=== PATIENT | female | born 1995 | race Two or more races ===

== ENCOUNTER 2024-08-31 22:36 | Inpatient (IN) | payer BC, OTHER ==
[~2024-08-31] VITALS: Ht 160 cm; Wt 53.6 kg
[2024-08-31 23:15] LABS: Urine Bacteria None Seen /hpf (None Seen)
[2024-08-31 23:32] VITALS: PULSE 78; RESP 28; O2SAT 100
[2024-08-31] MEDS: SODIUM CHLORIDE 0.9% 1,000 ML IV ONE (23:36)
[2024-08-31 23:47] LABS: Basophils # (auto) 0 10 ^3/uL (0-0.2); Basophils % (auto) 0.4 % (0.0-2.0); Eosinophils # (auto) 0.2 10 ^3/uL (0-0.8); Eosinophils % (auto) 1.8 % (0.0-7.0); Hematocrit 33.8 % (36.0-46.0); Hemoglobin 11.1 g/dL (12.2-16.2); Lymphocytes # (auto) 5.2 10 ^3/uL (0.4-5.4); Lymphocytes % (auto) 50.6 % (10.0-50.0); Mean Corpuscular Hemoglobin 30.2 pg (28.0-32.0); Mean Corpuscular Hgb Conc. 32.8 g/dL (32.0-36.0); Monocytes # (auto) 0.8 10 ^3/uL (0-1.3); Monocytes % (auto) 7.7 % (0.0-12.0); Neutrophils % (auto) 39.5 % (37.0-80.0); Nucleated Red Blood Cells % 0.1 %; Platelet Count (auto) 211 10^3/uL (140-450); Red Blood Cells 3.67 10^6/uL (4.0-5.20); Red Cell Distribution Width 12.8 % (11.8-14.3); White Blood Cell 10.2 10^3/uL (4.4-10.8)
--- NOTE | 2024-08-31 23:48 | ED.PDOC ---
History of Present Illness HPI Comments 28-year-old female brought in by family complaining of vaginal bleeding. Patient states she does not believe she is . She states she finished her last menstrual period 2 days ago, however started having heavy bleeding with large clots around 1800 today. She denies any abdominal pain, fever, nausea, vomiting, dizziness or shortness of breath. She denies history of irregular menses. She states last week she was seen by her primary physician for vomiting and diarrhea and was diagnosed with an intestinal virus. She states the symptoms have resolved. Chief Complaint: Vaginal Bleed Time Seen by MD: 23:10 Reviewed Notes: Nurses Notes, Medications, Allergies Allergies: Coded Allergies: NO KNOWN ALLERGIES (Unverified , 08/31/24) Information Source: Patient Mode of Arrival: Ambulatory Severity: Moderate Timing: Hours Duration: Since onset Prehospital treatment: None Past Medical History PAST MEDICAL HISTORY: Denies Surgical History: Denies all surgeries REAL ESTATE SALESPERSON History: No Pertinent REAL ESTATE SALESPERSON History, Other () Family History Family History: Reviewed,noncontributory to illness Social History Smoker: Non-Smoker Alcohol: Denies ETOH Use Drugs: Denies Drug Use Lives In: Home All Other Systems: Reviewed and Negative (Comprehensive systems review obtained and negative except for what is stated in the HPI.) Physical Exam General Appearance: No Apparent Distress HEENT: Other (Pupils and face symmetric. Moist mucous membranes.) Neck: Full Range of Motion, Normal Inspection Respiratory: Lungs Clear, No Accessory Muscle Use, No Respiratory Distress, Normal Breath Sounds Cardiovascular: No Edema, No JVD, Tachycardia Breast Exam: Deferred Gastrointestinal: Non Tender, Soft Genitalia: Deferred Pelvic: Deferred Rectal: Deferred Extremities: Normal inspection, Normal range of motion, Non-tender, No pedal edema Neurologic: Alert (Oriented x4), Normal Affect, Normal Mood, Other (Ambulatory) Cerebellar Function: NOT DONE Reflexes: NOT DONE Skin: Dry, Pallor, Warm Lymphatic: NOT DONE Was a procedure done? Was a procedure done?: No Differential Dx Considerations may include: anemia, coagulopathy, fibroids, ruptured ovarian cysts, , ectopic , among others X-Ray, Labs, Meds, VS Vital Signs Date Time Temp Pulse Resp B/P (MAP) Pulse Ox O2 Delivery O2 Flow Rate FiO2 08/31/24 23:32 96.6 78 28 98/60 (73) 100 96.6 08/31/24 23:32 78 28 100 Room Air* 0 21 08/31/24 23:01 98.2 130 17 134/76 (95) 98 98.2 Lab Test 08/31/24 23:45 08/31/24 23:30 08/31/24 23:00 Range/Units POC Glucose 121 H 70-106 mg/dl White Blood Count 10.2 4.4-10.8 10^3/uL Red Blood Count 3.67 L 4.0-5.20 10^6/uL Hemoglobin 11.1 L 12.2-16.2 g/dL Hematocrit 33.8 L 36.0-46.0 % Mean Corpuscular Volume 92.0 80.0-100.0 fL Mean Corpuscular Hemoglobin 30.2 28.0-32.0 pg Mean Corpuscular Hemoglobin Concent 32.8 32.0-36.0 g/dL Red Cell Distribution Width 12.8 11.8-14.3 % Platelet Count 211 140-450 10^3/uL Mean Platelet Volume 10.4 6.9-10.8 fL Neutrophils (%) (Auto) 39.5 37.0-80.0 % Lymphocytes (%) (Auto) 50.6 H 10.0-50.0 % Monocytes (%) (Auto) 7.7 0.0-12.0 % Eosinophils (%) (Auto) 1.8 0.0-7.0 % Basophils (%) (Auto) 0.4 0.0-2.0 % Neutrophils # (Auto) 4.0 1.6-8.6 10 ^3/uL Lymphocytes # (Auto) 5.2 0.4-5.4 10 ^3/uL Monocytes # (Auto) 0.8 0-1.3 10 ^3/uL Eosinophils # (Auto) 0.2 0-0.8 10 ^3/uL Basophils # (Auto) 0 0-0.2 10 ^3/uL Nucleated Red Blood Cells 0.1 % Prothrombin Time 11.3 9.3-11.8 sec Prothrombin Time INR 1.07 0.9-1.15 Activated Partial Thromboplast Time 22.9 L 24.5-34.5 SEC Sodium Level 141 136-145 mmol/L Potassium Level 3.2 L 3.5-5.1 mmol/L Chloride Level 107 98-107 mmol/L Carbon Dioxide Level 22 20-31 mmol/L Anion Gap 12 5-15 Blood Urea Nitrogen 11 9-23 mg/dL Creatinine 0.97 0.550-1.02 mg/dL Glomerular Filtration Rate Calc 83 >90 mL/min BUN/Creatinine Ratio 11.3 10.0-20.0 Serum Glucose 132 H 74-106 mg/dL Calcium Level 8.8 8.7-10.4 mg/dL Beta HCG, Quantitative 0.5 L 1.5-4.2 mIU/mL Urine Color Light-orange Yellow Urine Clarity Turbid H Clear Urine pH 5.0 5.0-9.0 Urine Specific [place] 1.032 1.001-1.035 Urine Protein Trace H Negative Urine Ketones Trace Negative Urine Blood 3+ H Negative /uL Urine Nitrite Negative Negative Urine Bilirubin Negative Negative Urine Urobilinogen Normal Negative mg/dL Urine Leukocyte Esterase Negative Negative /uL Urine RBC 2233 0 - 4 /hpf Urine Microscopic WBC 2 0-5 /HPF Urine Squamous Epithelial Cells Few <5 /hpf Urine Calcium Oxalate Crystals Mod None Seen Urine Bacteria None seen None Seen /hpf Urine Mucus Few None Seen Urine Glucose Normal Normal mg/dL Current Medications Medications (Trade) Dose Ordered Sig/Sandrita Route Start Time Stop Time Status Last Admin Sodium Chloride 1,000 ml @ 1,000 mls/hr Q1H ONCE IV 08/31/24 23:30 09/01/24 00:29 DC 08/31/24 23:36 PROCEDURE(s): PELUS - PELVIC REASON: VAG BLEED ORDER NUMBER(s): [id number], ACCESSION NUMBER(s): [id number] INDICATION: VAG BLEED TECHNIQUE: Multiple real-time grayscale transabdominal sonographic images along with color and duplex Doppler of the uterus and ovaries were obtained. COMPARISON: None FINDINGS: Uterus measures approximately 7.5 x 3.9 x 3.4 cm. Endometrium is thin measuring 2-3 mm with no evidence of increased vascularity. Evidence of low-level echogenic avascular collection in the vagina measuring approximately 4.6 x 3.7 x 2.1 cm the appearance of which is suggestive of hemorrhage/blood products. Right ovary measures approximately 2.9 x 1.6 x 2.1 cm containing small cysts/follicles. Left ovary is enlarged measuring approximately 6.9 x 4.7 x 6.3 cm with evidence of a large simple appearing cyst measuring up to approximately 6.2 x 5.4 x 4 cm. Color and Doppler analysis demonstrates no abnormality. No free fluid/fluid collection noted. IMPRESSION: No evidence of intrauterine . Evidence of low-level echogenic avascular collection in vagina measuring up to 4.6 cm the appearance of which is suggestive of hemorrhage/blood products. Large simple appearing cyst measuring up to 6.9 cm in the left ovary. X-Ray, Labs, Meds, VS Comment 28-year-old female with no significant past medical history presenting with heavy vaginal bleeding. While patient was awaiting studies, she had a syncopal episode in the ED. Vitals remarkable for heart rate 130 Exam remarkable for pallor and tachycardia Rhythm strip independently interpreted by me: Sinus tach, rate 130, no ectopy. Pelvic ultrasound: IMPRESSION: No evidence of intrauterine . Evidence of low-level echogenic avascular collection in vagina measuring up to 4.6 cm the appearance of which is suggestive of hemorrhage/blood products. Large simple appearing cyst measuring up to 6.9 cm in the left ovary. CBC remarkable for hemoglobin 11.1, hematocrit 33.8, repeat CBC pending, metabolic panel remarkable for potassium 3.2, coag panel remarkable for PTT 2 2.9, UA remarkable for blood but not consistent with UTI Patient treated with the following in the ED: 2 L 0.9 normal saline IV bolus, effervescent potassium 50 mEq p.o. Patient had another near syncopal episode when attempting to use the restroom Although patient is not currently meeting transfusion criteria, plan is to admit the patient for observation since she is symptomatic Time of 1ST Reevaluation: 23:35 (patient fainted twice in the lobby; was assisted and moved onto a bed for close monitoring; patient reports on becoming lightheaded prior to passing out) Reevaluation 1ST: Worsened Patient Education/Counseling: Diagnosis, Treatment, Other (need for admission ) Family Education/Counseling: No Family Present Departure 1 Departure Time of Disposition: 02:39 Impression: Primary Impression: Vaginal bleeding Additional Impressions: Syncope Qualified Codes: R55 - Syncope and collapse Symptomatic anemia Disposition: 09 ADMITTED INPATIENT Admit to: Tele Condition: Guarded Critical Care Note Critical Care Time?: No Stability Stability form required: No Heart Score Heart Score: Heart Score Response (Comments) Value History N/A 0 EKG N/A 0 Age N/A 0 Risk Factors N/A 0 Troponin N/A 0 Total 0 I personally scribed for ARTUR DE LOS SANTOS MD ([email or web address]) on 08/31/24 at 23:48. Electronically submitted by Rocky Zavala [email or web address]). ARTUR DE LOS SANTOS MD August 31, 2024 23:48
[2024-08-31 23:51] LABS: Chloride 107 mmol/L (98-107); Sodium 141 mmol/L (136-145)
[2024-08-31 23:52] LABS: Anion Gap 12 (5-15); Calcium 8.8 mg/dL (8.7-10.4); Carbon Dioxide 22 mmol/L (20-31)
[2024-08-31 23:57] LABS: BUN/Creatinine Ratio 11.3 (10.0-20.0); Blood Urea Nitrogen 11 mg/dL (9-23)
[2024-09-01] VITALS (7 sets, daily range): BP systolic 92–126; BP diastolic 48–87; PULSE 59–79; RESP 15–18; TEMP 97.8–98.9; O2SAT 98–100
[2024-09-01] LABS: Glucose 132 mg/dL (74-106); Potassium 3.2 mmol/L (3.5-5.1)
[2024-09-01 00:15] LABS: INR 1.07 (0.9-1.15); Partial Thromboplastin Time 22.9 SEC (24.5-34.5); Prothrombin Time 11.3 sec (9.3-11.8)
[2024-09-01 00:28] LABS: Urine Blood 3+ /uL (Negative); Urine Clarity Turbid (Clear); Urine Color Light-Orange (Yellow); Urine Mucus FEW (None Seen); Urine Protein, UAD TRACE (Negative); Urine Specific Gravity 1.032 (1.001-1.035); Urine Squamous Epithelial Cell FEW /hpf (<5); Urine Urobilinogen Normal (Negative); Urine WBC 2 /HPF (0-5)
--- NOTE | 2024-09-01 01:15 | DVH ---
INDICATION: VAG BLEED TECHNIQUE: Multiple real-time grayscale transabdominal sonographic images along with color and duplex Doppler of the uterus and ovaries were obtained. COMPARISON: None FINDINGS: Uterus measures approximately 7.5 x 3.9 x 3.4 cm. Endometrium is thin measuring 2-3 mm with no eviden ce of increased vascularity. Evidence of low-level echogenic avascular collection in the vagina measu ring approximately 4.6 x 3.7 x 2.1 cm the appearance of which is suggestive of hemorrhage/blood produ cts. Right ovary measures approximately 2.9 x 1.6 x 2.1 cm containing small cysts/follicles. Left ovary is enlarged measuring approximately 6.9 x 4.7 x 6.3 cm with evidence of a large simple appearing cyst m easuring up to approximately 6.2 x 5.4 x 4 cm. Color and Doppler analysis demonstrates no abnormality . No free fluid/fluid collection noted. IMPRESSION: No evidence of intrauterine . Evidence of low-level echogenic avascular collection in vagin a measuring up to 4.6 cm the appearance of which is suggestive of hemorrhage/blood products. Large simple appearing cyst measuring up to 6.9 cm in the left ovary.
[2024-09-01] MEDS: SODIUM CHLORIDE 0.9% 1,000 ML IV ONE ×2 (02:32→04:48)
[2024-09-01] MEDS: ONDANSETRON HCL 4 MG/2 ML VIAL IV ONE (02:34)
[2024-09-01] MEDS: POTASSIUM EFFERVESENT TAB 25 MEQ PO ONE (02:34)
[2024-09-01 02:45] LABS: Basophils # (auto) 0 10 ^3/uL (0-0.2); Basophils % (auto) 0.3 % (0.0-2.0); Eosinophils # (auto) 0.1 10 ^3/uL (0-0.8); Eosinophils % (auto) 0.4 % (0.0-7.0); Hematocrit 28.5 % (36.0-46.0); Hemoglobin 9.7 g/dL (12.2-16.2); Lymphocytes # (auto) 2.5 10 ^3/uL (0.4-5.4); Mean Corpuscular Hemoglobin 30.4 pg (28.0-32.0); Mean Corpuscular Hgb Conc. 33.9 g/dL (32.0-36.0); Mean Corpuscular Volume 89.6 fL (80.0-100.0); Monocytes # (auto) 0.4 10 ^3/uL (0-1.3); Monocytes % (auto) 2.8 % (0.0-12.0); Neutrophils # (auto) 9.7 10 ^3/uL (1.6-8.6); Neutrophils % (auto) 76.5 % (37.0-80.0); Platelet Count (auto) 174 10^3/uL (140-450); Red Blood Cells 3.18 10^6/uL (4.0-5.20); Red Cell Distribution Width 12.8 % (11.8-14.3); White Blood Cell 12.7 10^3/uL (4.4-10.8)
--- NOTE | 2024-09-01 04:12 | DVHHP2 ---
History of Present Illness Reason for Visit: AUB History of Present Illness 28-year-old previously healthy female with regular menses who presents with 1 week of heavy vaginal bleeding. She reports starting her period last Saturday and has since required 46 tampons/day, with worsening today. She experienced two syncopal episodes while waiting in the lobby, witnessed by family. She also reports a self-limited episode of diarrhea and vomiting 10 days ago. No prior similar episodes. No fever, chills, chest pain, or SOB. Denies trauma. VS: HR 130 on presentation, otherwise hemodynamically stable EKG: Sinus tachycardia, HR 130, no ectopy Labs: Hgb downtrended from 11 to 9.5 Imaging: Pelvic ultrasound: Enlarged left ovary with a simple cyst measuring 6.9 x 4.7 x 6.3 cm; intra-vaginal fluid collection up to 4.6 cm, likely blood products; no IUP Awaiting CT abdomen/pelvis with IV contrast Review of Systems Constitutional: Yes: Weakness; No: Fever, Chills, Sweats, Malaise, Other Eyes: No: Pain, Vision change, Conjunctivae inflammation, Eyelid inflammation, Other, Redness ENT: No: Ear pain, Ear discharge, Nose pain, Nose discharge, Nose congestion, Mouth pain, Mouth swelling, Throat pain, Throat swelling, Other Respiratory: No: Cough, Dry, Shortness of breath, SOB with excertion, Wheezing, Hemoptysis, Pleuritic Pain, Sputum, Wheezing, Other Cardiovascular: No: Chest Pain, Palpitations, Orthopnea, Paroxysmal Noc. Dyspnea, Edema, Lt Headedness, Other Gastrointestinal: No: Nausea, Vomiting, Abdominal Pain, Diarrhea, Constipation, Melena, Hematochezia, Other Genitourinary: No Dysuria, No Frequency, No Incontinence, No Hematuria, No Retention; Other (AUB) Musculoskeletal: No: other, neck pain, shoulder pain, arm pain, back pain, hand pain, leg pain, foot pain Skin: No: Rash, Lesions, Jaundice, Bruising, Other Neurological: No: Weakness, Numbness, Incoordination, Change in speech, Confusion, Seizures, Other Allergies: Coded Allergies: NO KNOWN ALLERGIES (Unverified , 08/31/24) Medications Current Medications Medications Dose Ordered Sig/Sandrita Route Start Time Stop Time Status Last Admin Dose Admin Sodium Chloride 1,000 ml @ 120 mls/hr Q8H20M IV 09/01/24 03:00 Acetaminophen 650 mg Q6HP PRN PO 09/01/24 03:00 Exam Vital Signs Vital Signs Date Time Temp Pulse Resp B/P (MAP) Pulse Ox O2 Delivery O2 Flow Rate FiO2 09/01/24 02:24 98.0 85 25 114/58 (76) 96 98.0 08/31/24 23:32 Room Air* 0 21 General Appearance: Alert, Oriented X3 HEENT: Atraumatic, PERRLA Respiratory: Clear to auscultation, Normal air movement Cardiovascular: Other (tachycardic) Abdominal: Normal bowel sounds, Soft Extremities: No clubbing, No cyanosis Skin: No rashes, No breakdown Neuro: Normal gait, Normal speech Labs/Xrays Labs Test 09/01/24 02:30 08/31/24 23:45 08/31/24 23:30 08/31/24 23:00 Range/Units White Blood Count 12.7 H 4.4-10.8 10^3/uL Red Blood Count 3.18 L 4.0-5.20 10^6/uL Hemoglobin 9.7 L 12.2-16.2 g/dL Hematocrit 28.5 #L 36.0-46.0 % Mean Corpuscular Volume 89.6 80.0-100.0 fL Mean Corpuscular Hemoglobin 30.4 28.0-32.0 pg Mean Corpuscular Hemoglobin Concent 33.9 32.0-36.0 g/dL Red Cell Distribution Width 12.8 11.8-14.3 % Platelet Count 174 140-450 10^3/uL Mean Platelet Volume 9.6 6.9-10.8 fL Neutrophils (%) (Auto) 76.5 37.0-80.0 % Lymphocytes (%) (Auto) 20.0 10.0-50.0 % Monocytes (%) (Auto) 2.8 0.0-12.0 % Eosinophils (%) (Auto) 0.4 0.0-7.0 % Basophils (%) (Auto) 0.3 0.0-2.0 % Neutrophils # (Auto) 9.7 H 1.6-8.6 10 ^3/uL Lymphocytes # (Auto) 2.5 0.4-5.4 10 ^3/uL Monocytes # (Auto) 0.4 0-1.3 10 ^3/uL Eosinophils # (Auto) 0.1 0-0.8 10 ^3/uL Basophils # (Auto) 0 0-0.2 10 ^3/uL Nucleated Red Blood Cells 0.0 % Troponin I High Sensitivity 14 </=34 ng/L POC Glucose 121 H 70-106 mg/dl Prothrombin Time 11.3 9.3-11.8 sec Prothrombin Time INR 1.07 0.9-1.15 Activated Partial Thromboplast Time 22.9 L 24.5-34.5 SEC Sodium Level 141 136-145 mmol/L Potassium Level 3.2 L 3.5-5.1 mmol/L Chloride Level 107 98-107 mmol/L Carbon Dioxide Level 22 20-31 mmol/L Anion Gap 12 5-15 Blood Urea Nitrogen 11 9-23 mg/dL Creatinine 0.97 0.550-1.02 mg/dL Glomerular Filtration Rate Calc 83 >90 mL/min BUN/Creatinine Ratio 11.3 10.0-20.0 Serum Glucose 132 H 74-106 mg/dL Calcium Level 8.8 8.7-10.4 mg/dL Beta HCG, Quantitative 0.5 L 1.5-4.2 mIU/mL Urine Color Light-orange Yellow Urine Clarity Turbid H Clear Urine pH 5.0 5.0-9.0 Urine Specific [place] 1.032 1.001-1.035 Urine Protein Trace H Negative Urine Ketones Trace Negative Urine Blood 3+ H Negative /uL Urine Nitrite Negative Negative Urine Bilirubin Negative Negative Urine Urobilinogen Normal Negative mg/dL Urine Leukocyte Esterase Negative Negative /uL Urine RBC 2233 0 - 4 /hpf Urine Microscopic WBC 2 0-5 /HPF Urine Squamous Epithelial Cells Few <5 /hpf Urine Calcium Oxalate Crystals Mod None Seen Urine Bacteria None seen None Seen /hpf Urine Mucus Few None Seen Urine Glucose Normal Normal mg/dL Assessment/Plan Assessment/Plan #Abnormal uterine hemorrhage #Syncope likely due to above #7 cm left ovarian cyst #Hypokalemia Admit Telemetry H&H 5 am Cupboard Builder consult Abdomen/pelvis IV ct scan IV fluids K PO given Ca [address] Rain Full code Plan discussed with: Patient, Other My Orders Orders - MERISSA AVILES RESIDENT Procedure Category Date Status Time Admit ADMIT 09/01/24 Transmitted 03:00 Code Status CODE 09/01/24 Transmitted 03:00 Vital Signs DARIAN 09/01/24 In Process 03:00 Review Orders With DARIAN 09/01/24 In Process Adm. 03:00 Regular Diet DIET 09/01/24 Transmitted Breakfast Sodium Chloride 0.9% PHA 09/01/24 In Process 03:00 Acetaminophen Tablet PHA 09/01/24 In Process (Tylenol Tablet) 03:00 Notify Md Of Changes DARIAN 09/01/24 In Process From Base 03:00 Advance Directive DARIAN 09/01/24 In Process 03:00 Echo 2d Mode Cardiac US 09/01/24 Logged DOP 03:00 Patient Condition ORDERS 09/01/24 Transmitted 03:00 Allergies DARIAN 09/01/24 In Process 03:00 Hemoglobin & LAB 09/01/24 Logged Hematocrit 05:00 Sodium Chloride 0.9% PHA 09/01/24 In Process 03:15 Ca 125 (Serial) LAB 09/01/24 Logged 03:14 Ct Abd Pelvis W CT 09/01/24 Logged Con-Oral & Iv 03:18 Orthostatic Vital ORDERS 09/01/24 Transmitted Signs 03:22 Comprehensive LAB 09/01/24 Logged Metabolic Panel 04:02 Thyroid Stimulating LAB 09/01/24 Logged Hormone 04:[address] Ct Abd Pelvis W CT 09/01/24 Logged Con-Oral & Iv 04:08 Date of Service: September 01, 2024 Billing Provider: HAILEY RAIN MD Common Visit Codes: 51743-NYEUKOP INP/OBS CARE (HIGH) Secondary Visit Codes: 54228-[id number] CARE PLAN 30 MINUTES MERISSA AVILES RESIDENT September 01, 2024 04:12
[2024-09-01] MEDS: ACETAMINOPHEN 325 MG TAB PO PRN (04:45)
--- NOTE | 2024-09-01 05:48 | DVH ---
Exam: CT CT AB PEL WITH IV CON ONLY History: RULE OUT OVARIAN CYST RUPTURE Comparison Study: None Contrast: Type of contrast: Omnipaque 300 Contrast injected: 100 Contrast wasted: 0 TECHNIQUE: A digital converting technician image was obtained. During the uneventful, intravenous administration of c ontrast material, multislice data acquisition was obtained through the abdomen and pelvis. The data s et was subsequently reconstructed into axial images. Images were reviewed on a work station using a c ombination of axial and multiplanar using a variety of window levels and settings. Radiation Dose Information: CT Dose: CTDI volume is 7.64 mGy. Dose-length product is 380.03 mGy*cm FINDINGS: Lung Bases: No acute or significant lung base finding. Normal heart size. No pleural or pericardial effusion. Liver: The liver is normal in size. No focal lesions. Normal hepatic vascular enhancement. Gallbladder and Biliary Tree: Unremarkable Spleen: Unremarkable Pancreas: The pancreas is normal in appearance without focal lesions or abnormal enhancement. Adrenal Glands: Unremarkable Kidneys: Kidneys demonstrate normal symmetric enhancement without focal lesions, calculi or hydroneph rosis. Bladder: Unremarkable Bowel: The stomach is grossly normal in appearance. Small bowel and colon are normal in caliber and d istribution. The appendix is visualized and is normal. Peritoneal cavity: No pneumoperitoneum. No ascites. Lymphadenopathy: No mesenteric, retroperitoneal or periportal lymphadenopathy. Abdominal Wall and Mesentery: Unremarkable. Vasculature: The visualized abdominal aorta is normal in size and caliber. Abdominal and pelvic vess els demonstrate normal enhancement. Pelvic Organs: The uterus is unremarkable. There is enlargement of the cervix which measures 6.2 cm. There is a left cystic adnexal mass measuring 5.0 by 6.1 by 4.7 cm. Musculoskeletal: No aggressive focal bony lesions, acute fractures or dislocation. Soft tissues: Unremarkable. IMPRESSION: 1. Enlargement of the cervix measuring 6.2 cm. An underlying mass is not excluded. Correlation with assembler truck trailer consultation and additional workup as appropriate to exclude malignancy is suggested. 2. Left adnexal cystic lesion measuring 6.1 cm. No free fluid in the pelvis to suggest cyst rupture. All CT scans at this medical facility are performed using dose modulation techniques as appropriate t o a performed exam including the following: Automated exposure control was utilized; adjustment of th e MA and/or KV according to patient size; and use of iterative reconstruction technique.
[2024-09-01] MEDS: SODIUM CHLORIDE 0.9% 1,000 ML IV SCH (06:44)
[2024-09-01 11:47] LABS: Hematocrit 26.3 % (36.0-46.0); Hemoglobin 9.1 g/dL (12.2-16.2)
[2024-09-01 11:57] LABS: Alanine Aminotransferase 15 U/L (7-40); Alkaline Phosphatase 69 U/L (46-116); Anion Gap 5 (5-15); BUN/Creatinine Ratio 8.2 (10.0-20.0); Calcium 8.8 mg/dL (8.7-10.4); Carbon Dioxide 27 mmol/L (20-31); Glucose 98 mg/dL (74-106); Potassium 3.8 mmol/L (3.5-5.1); Sodium 144 mmol/L (136-145)
[2024-09-01 11:58] LABS: % Iron Saturation 38.2 % (15-50); Albumin 3.5 g/dL (3.2-4.8); Aspartate Aminotransferase 9 U/L (13-40); Blood Urea Nitrogen 8 mg/dL (9-23); Chloride 112 mmol/L (98-107); Total Protein 5.5 g/dL (5.7-8.2)
[2024-09-01 11:59] LABS: Bilirubin, Total 0.4 mg/dL (0.2-1.0)
[2024-09-01] MEDS: medroxyPROGESTERone ACETATE 5 MG TAB PO SCH (12:08)
--- NOTE | 2024-09-01 13:09 | DVHINCON2 ---
Date of service: September 01, 2024 Referring Physician HOSPITALIST Reason for Consultation AUB History of Present Illness PT IS FEMALE ADMITTED FOR N/V,SYNCOPAL EPISODE .PT REPORTS HAVING HEAVY BLEEDING FOR THE LAST WEEK .PRIOR TO THIS SHE HAD NORMAL MENSES.HER LAST PAP WAS NEVER.SONO SHOWS 6.9 CM CYST OF LEFT OVARY Past Medical History NONE Past Surgical History NONE Family History NA Social History UNREMARKABLE Patient Family History: Hypertension G8 FATHER Allergies: Coded Allergies: NO KNOWN ALLERGIES (Unverified , 08/31/24) Current Medications Current Medications Medications (Trade) Dose Ordered Sig/Sandrtia Route PRN Reason Start Time Stop Time Status Last Admin Sodium Chloride 1,000 ml @ 120 mls/hr Q8H20M IV 09/01/24 03:00 09/01/24 11:34 Acetaminophen (Tylenol Tablet) 650 mg Q6HP PRN PO PAIN SCALE 1-3 OR TEMP>100.4 09/01/24 03:00 09/01/24 04:45 Medroxyprogesterone Acetate (Provera Tablet) 10 mg DAILY PO 09/01/24 10:45 09/01/24 12:08 Review of Systems Constitutional: no fever, chill, weight loss HEENT: no eye pain, no hearing loss, no oral lesion, no scleral icterus Heart: no chest pain, no chest pressure Lung: no cough, no dyspnea with exertion Abdomen: see HPI : no pain with urination, normal appearing urine Musculoskeletal: no joint pain, no muscle pain Neurological: no seizure, no loss of sensation, no weakness in extremities Pysch: no depression, no anxiety Derm: no rash, no jaundice Vital Signs Vital Signs Date Time Temp Pulse Resp B/P (MAP) Pulse Ox O2 Delivery O2 Flow Rate FiO2 09/01/24 09:00 97.8 77 18 92/58 (69) 100 97.8 09/01/24 05:52 Room Air* 0 21 Physical Exam SKIN: [NL ] HEENT: [NL ] NECK: [NL] CARDIAC: [RRR] PULMONARY: [CTA] ABDOMEN: [SOFT,NT] MUSCULOSKELETAL: [NL] PELVIC- NO ACTIVE BLEEDING NOTED ,UTERUS NL SIZE,ADENXA SOME TENDERNESS Labs/Diagnostic Data Labs Test 09/01/24 11:14 09/01/24 02:30 08/31/24 23:45 08/31/24 23:30 Range/Units Hemoglobin 9.1 L 12.2-16.2 g/dL Hematocrit 26.3 L 36.0-46.0 % Sodium Level 144 136-145 mmol/L Potassium Level 3.8 3.5-5.1 mmol/L Chloride Level 112 H 98-107 mmol/L Carbon Dioxide Level 27 20-31 mmol/L Anion Gap 5 5-15 Blood Urea Nitrogen 8 L 9-23 mg/dL Creatinine 0.97 0.550-1.02 mg/dL Glomerular Filtration Rate Calc 83 >90 mL/min BUN/Creatinine Ratio 8.2 L 10.0-20.0 Serum Glucose 98 74-106 mg/dL Calcium Level 8.8 8.7-10.4 mg/dL Iron Level 99 50-170 ug/dL Total Iron Binding Capacity 259 250-425 ug/dL Percent Iron Saturation 38.2 15-50 % Total Bilirubin 0.4 0.2-1.0 mg/dL Aspartate Amino Transferase (AST) 9 L 13-40 U/L Alanine Aminotransferase (ALT) 15 7-40 U/L Alkaline Phosphatase 69 46-116 U/L Troponin I High Sensitivity 15 </=34 ng/L Total Protein 5.5 L 5.7-8.2 g/dL Albumin 3.5 3.2-4.8 g/dL Thyroid Stimulating Hormone (TSH) 2.22 0.55-4.78 uIU/mL White Blood Count 12.7 H 4.4-10.8 10^3/uL Red Blood Count 3.18 L 4.0-5.20 10^6/uL Mean Corpuscular Volume 89.6 80.0-100.0 fL Mean Corpuscular Hemoglobin 30.4 28.0-32.0 pg Mean Corpuscular Hemoglobin Concent 33.9 32.0-36.0 g/dL Red Cell Distribution Width 12.8 11.8-14.3 % Platelet Count 174 140-450 10^3/uL Mean Platelet Volume 9.6 6.9-10.8 fL Neutrophils (%) (Auto) 76.5 37.0-80.0 % Lymphocytes (%) (Auto) 20.0 10.0-50.0 % Monocytes (%) (Auto) 2.8 0.0-12.0 % Eosinophils (%) (Auto) 0.4 0.0-7.0 % Basophils (%) (Auto) 0.3 0.0-2.0 % Neutrophils # (Auto) 9.7 H 1.6-8.6 10 ^3/uL Lymphocytes # (Auto) 2.5 0.4-5.4 10 ^3/uL Monocytes # (Auto) 0.4 0-1.3 10 ^3/uL Eosinophils # (Auto) 0.1 0-0.8 10 ^3/uL Basophils # (Auto) 0 0-0.2 10 ^3/uL Nucleated Red Blood Cells 0.0 % POC Glucose 121 H 70-106 mg/dl Prothrombin Time 11.3 9.3-11.8 sec Prothrombin Time INR 1.07 0.9-1.15 Activated Partial Thromboplast Time 22.9 L 24.5-34.5 SEC Beta HCG, Quantitative 0.5 L 1.5-4.2 mIU/mL Test 08/31/24 23:00 Range/Units Urine Color Light-orange Yellow Urine Clarity Turbid H Clear Urine pH 5.0 5.0-9.0 Urine Specific [place] 1.032 1.001-1.035 Urine Protein Trace H Negative Urine Ketones Trace Negative Urine Blood 3+ H Negative /uL Urine Nitrite Negative Negative Urine Bilirubin Negative Negative Urine Urobilinogen Normal Negative mg/dL Urine Leukocyte Esterase Negative Negative /uL Urine RBC 2233 0 - 4 /hpf Urine Microscopic WBC 2 0-5 /HPF Urine Squamous Epithelial Cells Few <5 /hpf Urine Calcium Oxalate Crystals Mod None Seen Urine Bacteria None seen None Seen /hpf Urine Mucus Few None Seen Urine Glucose Normal Normal mg/dL Primary Diagnosis AUB 2' Diagnosis/Comorbidities LEFT OVARIAN CYST Plan PT TO BE STARTED ON PROVERA AND TXA NEEDS REPEAT SONO NEEDS FU OUTPT RE CYST SARAN;L FOLLOW THANK YOU Plan discussed with: Patient Visit Coding OBGYN Date of Service: September 01, 2024 Billing Provider: ALONSO REYEZ DO NATIONAL SALES CONSULTANT Common Visit Codes: [id number] INP/OBS CARE(HIGH) NATIONAL SALES CONSULTANT Consultation Codes: [id number] CONSULT <80MIN ALONSO REYEZ DO September 01, 2024 13:08
[2024-09-01] MEDS: TRANEXAMIC ACID 1,000 MG in SODIUM CHL 0.9% 100 ML IV ONE (14:49)
[2024-09-01] MEDS ORDERED: MEDR5TAB5 PO (16:37)
[2024-09-01] MEDS ORDERED: MEDR5TAB28 PO (16:37)
--- NOTE | 2024-09-01 16:39 | DVHDS2 ---
Discharge Summary Date of Admission September 01, 2024 at 03:00 Date of Discharge: September 01, 2024 Labs/Diagnostic Data: Laboratory Results Test 09/01/24 11:14 09/01/24 02:30 08/31/24 23:45 08/31/24 23:30 Hemoglobin 9.1 g/dL (12.2-16.2) Hematocrit 26.3 % (36.0-46.0) Sodium Level 144 mmol/L (136-145) Potassium Level 3.8 mmol/L (3.5-5.1) Chloride Level 112 mmol/L (98-107) Carbon Dioxide Level 27 mmol/L (20-31) Anion Gap 5 (5-15) Blood Urea Nitrogen 8 mg/dL (9-23) Creatinine 0.97 mg/dL (0.550-1.02) Glomerular Filtration Rate Calc 83 mL/min (>90) BUN/Creatinine Ratio 8.2 (10.0-20.0) Serum Glucose 98 mg/dL (74-106) Calcium Level 8.8 mg/dL (8.7-10.4) Iron Level 99 ug/dL (50-170) Total Iron Binding Capacity 259 ug/dL (250-425) Percent Iron Saturation 38.2 % (15-50) Total Bilirubin 0.4 mg/dL (0.2-1.0) Aspartate Amino Transferase (AST) 9 U/L (13-40) Alanine Aminotransferase (ALT) 15 U/L (7-40) Alkaline Phosphatase 69 U/L (46-116) Troponin I High Sensitivity 15 ng/L (</=34) Total Protein 5.5 g/dL (5.7-8.2) Albumin 3.5 g/dL (3.2-4.8) Thyroid Stimulating Hormone (TSH) 2.22 uIU/mL (0.55-4.78) White Blood Count 12.7 10^3/uL (4.4-10.8) Red Blood Count 3.18 10^6/uL (4.0-5.20) Mean Corpuscular Volume 89.6 fL (80.0-100.0) Mean Corpuscular Hemoglobin 30.4 pg (28.0-32.0) Mean Corpuscular Hemoglobin Concent 33.9 g/dL (32.0-36.0) Red Cell Distribution Width 12.8 % (11.8-14.3) Platelet Count 174 10^3/uL (140-450) Mean Platelet Volume 9.6 fL (6.9-10.8) Neutrophils (%) (Auto) 76.5 % (37.0-80.0) Lymphocytes (%) (Auto) 20.0 % (10.0-50.0) Monocytes (%) (Auto) 2.8 % (0.0-12.0) Eosinophils (%) (Auto) 0.4 % (0.0-7.0) Basophils (%) (Auto) 0.3 % (0.0-2.0) Neutrophils # (Auto) 9.7 10 ^3/uL (1.6-8.6) Lymphocytes # (Auto) 2.5 10 ^3/uL (0.4-5.4) Monocytes # (Auto) 0.4 10 ^3/uL (0-1.3) Eosinophils # (Auto) 0.1 10 ^3/uL (0-0.8) Basophils # (Auto) 0 10 ^3/uL (0-0.2) Nucleated Red Blood Cells 0.0 % POC Glucose 121 mg/dl (70-106) Prothrombin Time 11.3 sec (9.3-11.8) Prothrombin Time INR 1.07 (0.9-1.15) Activated Partial Thromboplast Time 22.9 SEC (24.5-34.5) Beta HCG, Quantitative 0.5 mIU/mL (1.5-4.2) Test 08/31/24 23:00 Urine Color Light-orange (Yellow) Urine Clarity Turbid (Clear) Urine pH 5.0 (5.0-9.0) Urine Specific Dike 1.032 (1.001-1.035) Urine Protein Trace (Negative) Urine Ketones Trace (Negative) Urine Blood 3+ /uL (Negative) Urine Nitrite Negative (Negative) Urine Bilirubin Negative (Negative) Urine Urobilinogen Normal mg/dL (Negative) Urine Leukocyte Esterase Negative /uL (Negative) Urine RBC 2233 /hpf (0 - 4) Urine Microscopic WBC 2 /HPF (0-5) Urine Squamous Epithelial Cells Few /hpf (<5) Urine Calcium Oxalate Crystals Mod (None Seen) Urine Bacteria None seen /hpf (None Seen) Urine Mucus Few (None Seen) Urine Glucose Normal mg/dL (Normal) Other Laboratory Tests 09/01/24 11:14 09/01/24 02:30 Brief Hx & Hospital Course: 28-year-old previously healthy female with regular menses who presents with 1 week of heavy vaginal bleeding. She reports starting her period last Saturday and has since required 46 tampons/day, with worsening today. She experienced two syncopal episodes while waiting in the lobby, witnessed by family. She also reports a self-limited episode of diarrhea and vomiting 10 days ago. No prior similar episodes. No fever, chills, chest pain, or SOB. Denies trauma. While in the emergency department the patient was evaluated by the provider, As per provider: Labs, vital signs, and imagining monitored. Patient was admitted on 09/01/2024 for a single episode related to acute blood loss anemia for menorrhagia. Patient states this was the first time she's had a heavy period. CT imaging did show a large left ovarian cyst. Patient was seen and evaluated by OBGYN doctor Amanda. Pelvic ultrasound was also done. Patient will start Provera for five additional days, ten milligrams for menorrhagia, and she was instructed to obtain a referral to see Doctor Patel outpatient for OBGYN follow up for left ovarian cyst. CA-125 currently pending. Patient was instructed to follow up with her PCP in one week. There were no complaints or new complaints upon discharge, all questions and concerns were answered. Patient was advised to return to the ER or call 911 if any headaches, dizziness, shortness of breath, chest pain, bleeding, fevers, or worsening of medical condition. Patient/Family was counseled about treatment plan, medications, possible side effects, patientverbalized understanding. All questions were answered to the best of my ability. The patient symptoms improved and they are okay to be DC. Condition at Discharge: Stable Final Diagnosis/Problems List Symptomatic anemia menorrhagia left ovarian cyst Discharge Disposition: Home Discharge Instruct/Medications Diet: Regular Activity: No Restrictions, As Tolerated Follow Up/Referral: pcp 1 week Discharge Statement: "Patient was advised to return to the ER or call 911 if any headaches, dizziness, shortness of breath, chest pain, abdominal pain, bleeding, fevers, or worsening of medical condition. Patient was counseled about treatment plan, medications, possible side effects, patientverbalized understanding. All questions were answered to the best of my ability. This discharge took greater then 30 minutes in planning, reviewing documentation, counseling the patient, and discussing with other team members." ASSESSMENT ASSESSMENT Assessment Symptomatic anemia menorrhagia left ovarian cyst TRENTON PICKARD NP September 01, 2024 16:39
[2024-09-02 08:07] LABS: Cancer Antigen (CA) 125 10.2 U/mL (0.0-38.1)
== END 2024-09-01 17:40 | disposition home or self-care (01) | DRG 760 ==
LOC: ER 22:36 → OVERFLOW 09-01 03:00 → TELE-WESTW 09-01 05:34
PROVIDERS: ADMIT Nurse Practitioner; ATTEND Nurse Practitioner
DX: N92.0 Excessive and frequent menstruation with regular cycle (principal); D62 Acute posthemorrhagic anemia; N83.202 Unspecified ovarian cyst, left side; E87.6 Hypokalemia; R00.0 Tachycardia, unspecified; Z82.49 Family history of ischemic heart disease and other diseases of the circulatory system
CPT/HCPCS: 36415; 74177; 76830; 76856; 80048; 80053; 81001; 82962; 83540; 83550; 84443; 84484; 84702; 85014; 85018; 85025; 85610; 85730; 86304; 86850; 86900; 86901; 93306; 96360; G0378; J2405

== ENCOUNTER → 2025-04-14 | Outpatient (CLI) | payer BC ==
[~2025-04-14] MED LIST: MEDR5TAB28 PO; MEDR5TAB5 PO
[2025-04-14 12:50] LABS: Hematocrit 40.8 % (36.0-46.0); Hemoglobin 13.8 g/dL (12.2-16.2); Mean Corpuscular Hemoglobin 29.8 pg (28.0-32.0); Mean Corpuscular Volume 87.8 fL (80.0-100.0); Nucleated Red Blood Cells % 0.1 %
[2025-04-14 13:18] LABS: Iron 141.0 ug/dL (50-170)
[2025-04-14 13:19] LABS: Alanine Aminotransferase 15 U/L (7-40); Albumin 4.8 g/dL (3.2-4.8); Alkaline Phosphatase 80 U/L (46-116); Anion Gap 9 (5-15); BUN/Creatinine Ratio 8.5 (10.0-20.0); Calcium 9.4 mg/dL (8.7-10.4); Carbon Dioxide 26 mmol/L (20-31); Glucose 86 mg/dL (74-106); Potassium 3.8 mmol/L (3.5-5.1); Sodium 143 mmol/L (136-145); Total Protein 7.7 g/dL (5.7-8.2); Triglycerides 144 mg/dL (< 150)
[2025-04-14 13:20] LABS: Bilirubin, Total 0.6 mg/dL (0.2-1.0); HDL Cholesterol 41 mg/dL (40-59); Total Iron Binding Capacity 361.0 ug/dL (250-425)
[2025-04-14 13:23] LABS: Blood Urea Nitrogen 8 mg/dL (9-23); Chloride 108 mmol/L (98-107); Cholesterol 203 mg/dL (< 200)
[2025-04-14 13:25] LABS: Ferritin 18.0 ng/mL (10-291)
[2025-04-14 14:20] LABS: Hepatitis A Total Antibody Positive (Negative); Hepatitis B Surface Antigen Negative (Negative); Hepatitis C Antibody Negative (Negative)
== END | disposition home or self-care (01) ==
LOC: LAB 12:06
PROVIDERS: ATTEND Licensed Practical Nurse
DX: E55.9 Vitamin D deficiency, unspecified (principal); N93.9 Abnormal uterine and vaginal bleeding, unspecified; R53.0 Neoplastic (malignant) related fatigue; Z13.29 Encounter for screening for other suspected endocrine disorder; Z13.1 Encounter for screening for diabetes mellitus; Z00.01 Encounter for general adult medical examination with abnormal findings
CPT/HCPCS: 36415; 80053; 80061; 82043; 82306; 82607; 82728; 82746; 83036; 83540; 83550; 84443; 85025; 86704; 86706; 86708; 86803; 87340